=== PATIENT | male | born 1980 | race American Indian/Alaskan Native ===

== ENCOUNTER 2020-09-25 19:29 | Emergency (ER) | payer BC ==
--- NOTE | 2020-09-25 23:46 | XRay Report ---
CHEST 1 VIEW INDICATION: CP. COMPARISON: None. FINDINGS: Support devices: None. Heart: Normal. Lungs/Pleura: No acute pulmonary or pleural findings. IMPRESSION: 1. No acute findings. Signer Name: Tim Hickey MD Signed: 09/25/2020 11:42 PM Workstation Name: [id number]
--- NOTE | 2020-09-26 00:01 | Emergency Department Report ---
ED Chest Pain HPI - General Chief Complaint: Chest Pain Stated Complaint: CHEST PAIN/FATIGUE Time Seen by Provider: 09/25/20 23:22 Source: patient Mode of arrival: Ambulatory Limitations: No Limitations - History of Present Illness Initial Comments: This is a 39-year-old male who presents to the emergency department with a complaint of a 1 week history of some intermittent midsternal chest pain, shortness of breath, and dizziness. Patient says that the symptoms began shortly after he received a Pfizer Covid vaccination on 09/18. The patient does admit to some intermittent cocaine use and last used it 2 days ago. The patient does smoke cigarettes. He denies any significant alcohol consumption today but does drink alcohol regularly without any history of alcohol dependence. Otherwise he denies any past medical history. He has not taken anything for symptoms prior to presentation. No recent travel or sick contacts at home. Severity scale (0 -10): 8 - Related Data Allergies Allergy/AdvReac Type Severity Reaction Status Date / Time No Known Allergies Allergy Verified 09/25/20 20:21 Heart Score - HEART Score History: Slightly suspicious EKG: Normal Age: < 45 Risk factors: 1-2 risk factors Troponin: < normal limit HEART Score: 1 - EKG Read Time Time EKG Completed: 23:50 EKG Read Time: 23:51 - Critical Actions Critical Actions: 0-3 pts:0.9-1.7%risk of adverse cardiac event.Candidate for discharge ED Review of Systems ROS: Stated complaint: CHEST PAIN/FATIGUE Other details as noted in HPI Comment: All other systems reviewed and negative Constitutional: denies: chills, fever Eyes: denies: eye pain, vision change ENT: denies: ear pain, throat pain Respiratory: shortness of breath. denies: wheezing Cardiovascular: chest pain. denies: edema Gastrointestinal: denies: abdominal pain, vomiting Genitourinary: denies: dysuria, discharge Musculoskeletal: denies: back pain, arthralgia Skin: denies: rash, lesions Neurological: other (Dizziness). denies: headache, weakness ED Past Medical Hx - Past Medical History Previous Medical History?: No - Surgical History Past Surgical History?: No - Social History Smoking Status: Current Every Day Smoker Substance Use Type: Alcohol, Cocaine, Marijuana ED Physical Exam - General Limitations: No Limitations - Other Other exam information: GENERAL: The patient is well-developed well-nourished. HENT: Normocephalic. Atraumatic. Patient has moist mucous membranes. EYES: Extraocular motions are intact. No nystagmus. NECK: Supple. Trachea is midline. CHEST/LUNGS: Clear to auscultation. There is no respiratory distress noted. HEART/CARDIOVASCULAR: Regular. There is no tachycardia. There is no murmur. ABDOMEN: Abdomen is soft, nontender. Patient has normal bowel sounds. SKIN: Skin is warm and dry. NEURO: The patient is awake, alert, and oriented. The patient is cooperative. The patient has no focal neurologic deficits. Normal speech. Cranial nerves II through XII grossly intact. No facial asymmetry. No pronator drift. MUSCULOSKELETAL: There is no tenderness or deformity. There is no limitation range of motion. ED Course Vital Signs 09/25/20 09/25/20 09/25/20 20:16 23:26 23:30 Temperature 98.4 F Pulse Rate 113 H 106 H 112 H Respiratory 16 10 L Rate Blood Pressure 138/98 144/104 O2 Sat by Pulse 97 97 98 Oximetry 09/25/20 09/26/20 09/26/20 23:46 00:00 00:16 Temperature Pulse Rate 96 H 97 H 98 H Respiratory 16 18 16 Rate Blood Pressure 144/104 125/91 125/91 O2 Sat by Pulse 96 96 97 Oximetry 09/26/20 09/26/20 09/26/20 00:30 00:46 01:00 Temperature Pulse Rate 90 89 83 Respiratory 14 17 17 Rate Blood Pressure 121/82 121/82 118/84 O2 Sat by Pulse 96 95 95 Oximetry 09/26/20 01:16 Temperature Pulse Rate 81 Respiratory 18 Rate Blood Pressure 118/84 O2 Sat by Pulse 95 Oximetry WAQAS score - Waqas Score Age > 65: (0) No Aspirin use within the Past 7 Days: (0) No 3 or more CAD Risk Factors: (0) No 2 or more Angina events in past 24 hrs: (1) Yes Known CAD with more than 50% Stenosis: (0) No Elevated Cardiac Markers: (0) No ST Deviation Greater than 0.5mm: (0) No WAQAS Score: 1 ED Medical Decision Making - Lab Data Result diagrams: 09/25/20 23:37 09/25/20 23:37 Lab Results 09/25/20 09/25/20 09/25/20 Range/Units 23:37 23:37 23:37 WBC 5.8 (4.5-11.0) K/mm3 RBC 4.73 (3.65-5.03) M/mm3 Hgb 15.6 H (11.8-15.2) gm/dl Hct 44.4 (35.5-45.6) % MCV 94 (84-94) fl MCH 33 H (28-32) pg MCHC 35 H (32-34) % RDW 12.6 L (13.2-15.2) % Plt Count 240 (140-440) K/mm3 Lymph % (Auto) 30.2 (13.4-35.0) % [place] % (Auto) 7.6 H (0.0-7.3) % Eos % (Auto) 4.6 H (0.0-4.3) % Baso % (Auto) 1.2 (0.0-1.8) % Lymph # (Auto) 1.7 (1.2-5.4) K/mm3 [place] # (Auto) 0.4 (0.0-0.8) K/mm3 Eos # (Auto) 0.3 (0.0-0.4) K/mm3 Baso # (Auto) 0.1 (0.0-0.1) K/mm3 Seg Neutrophils % 56.4 (40.0-70.0) % Seg Neutrophils # 3.3 (1.8-7.7) K/mm3 PT 11.9 L (12.2-14.9) Sec. INR 0.89 (0.87-1.13) D-Dimer 153.14 (0-234) ng/mlDDU Sodium 137 (137-145) mmol/L Potassium 4.0 (3.6-5.0) mmol/L Chloride 94.7 L (98-107) mmol/L Carbon Dioxide 23 (22-30) mmol/L Anion Gap 23 mmol/L BUN 10 (9-20) mg/dL Creatinine 0.7 L (0.8-1.3) mg/dL Estimated GFR > 60 ml/min BUN/Creatinine Ratio 14 % Glucose 77 (75-100) mg/dL Calcium 9.1 (8.4-10.2) mg/dL Total Bilirubin 0.40 (0.1-1.2) mg/dL AST 79 H (5-40) units/L ALT 94 H (7-56) units/L Alkaline Phosphatase 67 (35-129) units/L Troponin T < 0.010 (0.00-0.029) ng/mL Total Protein 7.1 (6.3-8.2) g/dL Albumin 5.0 (3.9-5) g/dL Albumin/Globulin Ratio 2.4 % TSH (0.270-4.200) mlU/mL 09/25/20 Range/Units 23:59 WBC (4.5-11.0) K/mm3 RBC (3.65-5.03) M/mm3 Hgb (11.8-15.2) gm/dl Hct (35.5-45.6) % MCV (84-94) fl MCH (28-32) pg MCHC (32-34) % RDW (13.2-15.2) % Plt Count (140-440) K/mm3 Lymph % (Auto) (13.4-35.0) % [place] % (Auto) (0.0-7.3) % Eos % (Auto) (0.0-4.3) % Baso % (Auto) (0.0-1.8) % Lymph # (Auto) (1.2-5.4) K/mm3 [place] # (Auto) (0.0-0.8) K/mm3 Eos # (Auto) (0.0-0.4) K/mm3 Baso # (Auto) (0.0-0.1) K/mm3 Seg Neutrophils % (40.0-70.0) % Seg Neutrophils # (1.8-7.7) K/mm3 PT (12.2-14.9) Sec. INR (0.87-1.13) D-Dimer (0-234) ng/mlDDU Sodium (137-145) mmol/L Potassium (3.6-5.0) mmol/L Chloride (98-107) mmol/L Carbon Dioxide (22-30) mmol/L Anion Gap mmol/L BUN (9-20) mg/dL Creatinine (0.8-1.3) mg/dL Estimated GFR ml/min BUN/Creatinine Ratio % Glucose (75-100) mg/dL Calcium (8.4-10.2) mg/dL Total Bilirubin (0.1-1.2) mg/dL AST (5-40) units/L ALT (7-56) units/L Alkaline Phosphatase (35-129) units/L Troponin T (0.00-0.029) ng/mL Total Protein (6.3-8.2) g/dL Albumin (3.9-5) g/dL Albumin/Globulin Ratio % TSH 1.910 (0.270-4.200) mlU/mL - EKG Data -: EKG Interpreted by Me EKG shows normal: sinus rhythm, axis, intervals, QRS complexes (LVH), ST-T waves (Early repolarization) Rate: normal - EKG Data When compared to previous EKG there are: previous EKG unavailable Interpretation: other (Sinus rhythm at 93 bpm, LVH, normal axis, normal intervals.) - Radiology Data Radiology results: image reviewed interpreted by me: Chest x-ray does not show any acute process. There are no pleural effusions, o bvious pneumonia and there is no pneumothorax. No significant cardiomegaly. - Medical Decision Making This patient presents to the emergency department with complaint of some intermittent midsternal chest pain, shortness of breath, and some nonspecific dizziness, that has been going on for the past 4 days. On examination the patient has normal sounding heart and lungs to auscultation. He does not appear in any respiratory or acute distress. He does not have any focal, motor or sensory deficits and his cranial nerves are intact. EKG does not have any morphology consistent with ST elevation myocardial infarction or any arrhythmia. Chest x-ray does not show any pneumonia, pleural effusions, pneumothorax, or any other acute process. The patient's labs have been mostly unremarkable including CBC, metabolic panel, negative troponin and negative D-dimer. Vital signs have been reassuring throughout his ED course including being afebrile. The patient was reevaluated multiple times over multiple hours and has remained stable throughout his ED course. The patient says he is feeling improved. He does not have any chest pain currently. Patient is low on the heart and WAQAS score. He is low on the Wells score criteria and had a negative D-dimer. For all these reasons the patient appears safe for discharge home at this time. His contact information has been sent over to the [facility], and someone from their office should be contacting him shortly for close outpatient follow-up as per our [facility] low risk chest pain protocol. We discussed smoking cessation and avoiding any further cocaine or illicit drug use. Critical Care Time: No Critical care attestation.: If time is entered above; I have spent that time in minutes in the direct care of this critically ill patient, excluding procedure time. ED Disposition Clinical Impression: Intermittent chest pain, Cocaine use, Tobacco use Dyspnea Qualifiers: Dyspnea type: shortness of breath Qualified Code(s): R06.02 - Shortness of breath; R06.00 - Dyspnea, unspecified; R06.01 - Orthopnea Disposition: DC- TO HOME OR SELFCARE Is pt being admited?: No Condition: Stable Instructions: Stimulant Use Disorder-Cocaine, Nonspecific Chest Pain, Adult, Shortness of Breath, Adult, Steps to Quit Smoking Additional Instructions: Please avoid any further cocaine or illicit drug use. Please try and quit smoking. Follow-up with a primary care physician in the next few days. I am sending your contact information over to the [facility], and someone from their office should be contacting you shortly for close outpatient follow-up. Just in case, I am giving you a referral for one of their cardiologists, Dr. Harper. Return to the emergency department with any worsening of your symptoms, new or concerning symptoms not addressed during this current emergency department visit, or with any acute distress. Referrals: PRIMARY CARE, [Primary Care Provider] - 2-3 Days TIAGO HARPER MD [Staff Physician] - 2-3 Days Forms: Work/School Release Form(ED) Time of Disposition: 01:31
[2020-09-26 00:45] LABS: Basophils # (Auto) 0.1 K/mm3 (0.0-0.1); Basophils % (Auto) 1.2 % (0.0-1.8); Eosinophils # (Auto) 0.3 K/mm3 (0.0-0.4); Eosinophils % (Auto) 4.6 % (0.0-4.3); Hematocrit 44.4 % (35.5-45.6); Hemoglobin 15.6 gm/dl (11.8-15.2); Lymphocytes # (Auto) 1.7 K/mm3 (1.2-5.4); Lymphocytes % (Auto) 30.2 % (13.4-35.0); Mean Corpuscular HGB Conc 35 % (32-34); Mean Corpuscular Volume 94 fl (84-94); Monocytes # (Auto) 0.4 K/mm3 (0.0-0.8); Monocytes % (Auto) 7.6 % (0.0-7.3); Platelet Count 240 K/mm3 (140-440); Red Blood Count 4.73 M/mm3 (3.65-5.03); Red Cell Distribution Width 12.6 % (13.2-15.2)
[2020-09-26 00:59] LABS: Alanine Aminotransferase 94 units/L (7-56); Blood Urea Nitrogen 10 mg/dL (9-20); Calcium 9.1 mg/dL (8.4-10.2); Hemolysis Index 6
[2020-09-26 01:00] LABS: INR 0.89 (0.87-1.13)
[2020-09-26 01:06] LABS: BUN/Creatinine Ratio 14
[2020-09-26 01:31] VITALS: BP 118/84
--- NOTE | 2020-09-27 11:34 | Electrocardiograph Report ---
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
--- NOTE | 2020-09-27 11:34 | Electrocardiograph Report ---
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
== END 2020-09-26 01:40 | disposition home or self-care (01) ==
LOC: ED 19:29
DX: F14.90 Cocaine use, unspecified, uncomplicated (principal); F17.200 Nicotine dependence, unspecified, uncomplicated; R06.00 Dyspnea, unspecified; R07.89 Other chest pain; F12.90 Cannabis use, unspecified, uncomplicated
CPT/HCPCS: 36415; 71045; 80053; 84443; 84484; 85025; 85379; 85610; 93005